=== PATIENT | male | born 1980 | race Hispanic/Latino ===

== ENCOUNTER 2020-07-18 17:33 | Emergency (ER) | payer BC, SELFPAY ==
--- NOTE | 2020-07-18 18:20 | RAD ---
RADIOGRAPH RIGHT ELBOW 4VIEWS: DATE: 07/18/2020 HISTORY: 40-year-old male with right elbow pain FINDINGS: There is no evidence of fracture or dislocation. There is no evidence of periostitis, permeative lesi on, osteolytic lesion, or osteoblastic lesion. The joint spaces are maintained without erosions or significant osteophytes. Subtle finding of probably displaced anterior and posterior fat-pads. IMPRESSION: 1) probably distended joint capsule suggestive of joint effusion. 2) no osseous abnormality.
--- NOTE | 2020-07-18 18:52 | ULT ---
ULTRASOUND DOPPLER DUPLEX VENOUS RIGHT UPPER EXTREMITY: DATE: 07/18/2020 HISTORY: 40-year-old male with edema and pain in right upper extremity TECHNIQUE: Grayscale, color-flow, and spectral analysis, of the right internal jugular, subclavian, axillary, br achial, basilic, cephalic, radial, and ulnar, veins. Compression and release applied to all veins except the subclavian. FINDINGS: There is demonstration of blood flow in the subclavian vein. There is demonstration of blood flow and normal compressibility in all other veins. No moderate sized or large hematoma or abscess identified. IMPRESSION: Negative. No deep venous thrombosis of right upper extremity.
== END 2020-07-18 19:17 | disposition home or self-care (01) ==
LOC: ERS 17:33
DX: M70.21 Olecranon bursitis, right elbow (principal); E78.5 Hyperlipidemia, unspecified; I10 Essential (primary) hypertension; Z79.899 Other long term (current) drug therapy